=== PATIENT | male | born 1970 | race Caucasian/White ===

== ENCOUNTER 2017-06-02 11:20 | Day surgery (SDC) | payer BC ==
[2017-06-02] MEDS ORDERED: D5 LR 1000 ML 1,000 ML IV ONE (11:29)
[2017-06-02] MEDS ORDERED: VERSED ONE ×2 (11:35→11:46)
[2017-06-02] MEDS ORDERED: VERSED IVP ONE ×2 (11:38→11:47)
[2017-06-02 14:03] VITALS: BP 119/71
== END 2017-06-02 12:15 | disposition home or self-care (01) ==
LOC: SURG1 11:20
PROVIDERS: ATTEND Internal Medicine Gastroenterology
PROC: 0DB58ZX Excision of Esophagus, Via Natural or Artificial Opening Endoscopic, Diagnostic (ICD-10-PCS; principal; 2017-06-02 18:00)
PROC: 0DB68ZX Excision of Stomach, Via Natural or Artificial Opening Endoscopic, Diagnostic (ICD-10-PCS; principal; 2017-06-02 18:00)
PROC: 0D757ZZ Dilation of Esophagus, Via Natural or Artificial Opening (ICD-10-PCS; principal; 2017-06-02 18:00)
PROC: 0DJ08ZZ Inspection of Upper Intestinal Tract, Via Natural or Artificial Opening Endoscopic (ICD-10-PCS; principal; 2017-06-02 18:00)
DX: R13.19 Other dysphagia (principal); R10.13 Epigastric pain; K21.9 Gastro-esophageal reflux disease without esophagitis; K22.4 Dyskinesia of esophagus; K22.2 Esophageal obstruction; K29.60 Other gastritis without bleeding; K22.8 Other specified diseases of esophagus
CPT/HCPCS: A4217; J2250; J7120